=== PATIENT | female | born 1980 | race Caucasian/White ===

== ENCOUNTER 2021-03-18 09:32 | Day surgery (SDC) | payer OTHER ==
[~2021-03-18] VITALS: Ht 154.9 cm; Wt 67.1 kg
[~2021-03-18 09:32] MED LIST: ALPRAZOLAM 0.50.5 M1 PO; ESCITALOPRAM OX20 MG PO; RABEPRAZOLE SOD20 MG PO; SPIRONOLACTONE50 MG PO; ZOLPIDEM TART12.5 MG PO
[2021-03-18 10:16] VITALS: BP 122/81
[2021-03-18 11:05] LABS: CALCIUM 8.8 mg/dL (8.5-10.1); CREATININE 0.9 mg/dL (0.6-1.0); POTASSIUM 4.2 mmol/L (3.5-5.1)
[2021-03-18] MEDS ORDERED: NORCO5 PO (14:05)
[2021-03-18 14:31] VITALS: BP 122/81
--- NOTE | 2021-03-19 14:05 | O ---
[facility] [place] [address] OPERATIVE REPORT Name: CHASITY OLIVEROS Room #: [facility] M.Bri.#: [id number] Admission: 03/18/21 Attend Phys: Karina Castaneda DO Discharge: 03/18/21 Date of : 78 Report #: [id number] THIS REPORT FOR: cc: Jody Christianson MD, Liliana E. MD Fisher,Karina Whiting DO ~ DATE OF SERVICE: 03/18/2021 PREOPERATIVE DIAGNOSIS: Left axillary mass. POSTOPERATIVE DIAGNOSIS: Left axillary mass. PROCEDURE: Excisional biopsy of left axillary mass. SPECIMENS: Left axillary mass. ESTIMATED BLOOD LOSS: 20 mL. COMPLICATIONS: None. INDICATIONS FOR PROCEDURE: The patient is a 40-year-old female with history of retromuscular breast augmentation. Over the course of the last several months, she has noticed an enlarging left axillary mass. There is a more superficial mass as well as a deeper mass that is tender to palpation. The patient was seen and examined. Imaging was performed, which did not demonstrate any abnormal findings. There was a palpable mass on exam. The patient was explained excisional mass of left axillary mass including risks, benefits and alternatives. All questions were answered to the patient's satisfaction. Informed consent was obtained. DESCRIPTION OF PROCEDURE: After the patient was brought back to the operating room and placed in supine position, general anesthesia was induced. SCDs were placed on bilateral extremities and prophylactic antibiotics were administered. Next, after a timeout was performed and the left arm was placed on an arm board, the axilla was prepped and draped in the usual sterile fashion and a timeout was performed. Next, using the patient's previous scar, a 4 cm incision was created over the previous scar. Dissection was carried down through the subcutaneous tissues using Bovie cautery. Next, a Weitlaner retractor was placed. The left axillary mass was marked in the preoperative holding area and I was able to palpate this at the time of the procedure. Dissection was carried down deep through the subcutaneous tissues until a firm nodule was identified. This did appear to be either lipomatous material scar or possibly a chain of lymph nodes. The most palpable firm area was then grasped. Dissection was carried out circumferentially using Bovie cautery and the mass was removed. Upon finger palpation within the wound, there was no further deep component of the mass. The tissue was then palpated more superficially. It did appear that the patient [address] [address] OPERATIVE REPORT Name: MEHRDAD OLIVEROSFER FLEX Room #: DEP [facility] Cipriano#: [id number] Admission: 03/18/21 Attend Phys: Karina Castaneda, Discharge: 03/18/21 Date of : 78 Report #: [id number] had multiple layers of scar within this area. The patient, of note, was given paralytic at the beginning of the procedure, which was allowed to wear off and at one portion, the patient did begin coughing during the procedure and additional sedation was provided without paralytic. During my axillary exploration, no nerves were encountered or large vessels. In the area that was marked of the more superficial lesion, this did appear to be more associated with scar tissue and a small multiloculated lipoma, several firm fatty tissue nodules were removed and placed as specimen. There was not a clear demarcated mass, however, within this more superficial plane. Deep to this plane, there was noted to be additional scar tissue as well as pectoralis muscle. At this time, the wound was then again palpated, no further mass was identified either from within the wound or superficial through the skin. At this time, the wound was copiously irrigated with saline. Hemostasis was achieved using Bovie cautery. Local anesthetic was infiltrated into the subcutaneous tissue and deep dermal layers. The skin was then reapproximated using 3-0 Vicryl in an interrupted fashion and 4-0 Monocryl in a subcuticular manner to close the skin. The area was cleaned. Dermabond was applied for sterile dressing. All sponge and instrument count was reported as correct at the end of the case. The patient tolerated the procedure well without any complications. She was awakened from anesthesia in the operating room and taken to the PACU in stable condition for further recovery. <ELECTRONICALLY SIGNED> By: Karina Castaneda DO 03/19/21 1405 [id number] [id number] Karina Castaneda DO /nt
--- NOTE | 2021-03-24 09:08 | PATH ---
[facility] [address] [place] [address] PATHOLOGY RPT PROCEDURE Name: ANGELICA OLIVEROSNIFER FLEX Room #: DEP [facility] M.R.#: [id number] Admission: 03/18/21 Date of : 78 Discharge: 03/18/21 Report #: [id number] Path Case #: [id number] [facility] Accession Number: [id number] . 01 Material submitted: . lymph node - LEFT AXILLARY MASS. Modifiers: left . 01 Clinical history: . LEFT AXILLARY MASS/NODE . 02 Diagnosis: Lump nodes (3), "left axillary mass", dissection: - Reactive lymph nodes with sinus histiocytosis. - Negative for involvement by metastatic carcinoma or non-Hodgkin lymphoma (please see comment). (IUV:tessa; 03/19/2021) MBR 03/19/2021 [facility] Local . 02 Comment: Examination shows multiple lymph nodes scattered within the adipose tissue with intact germinal centers showing reactive hyperplasia, atypical or markedly enlarged or binucleated lymphocytes are not identified. Multiple properly controlled immunohistochemical stains are performed on block A7 and interpreted as follows: . CD20 - reactive within the B-cells in the aggregate. PAX-5 - reactive within the B-cells in the aggregate. CD3 - reactive within the T-cells admixed in the background. CD5 - reactive within the T-cells in the aggregate (no co-expression within the B-cells identified). CD10 - reactive within the germinal center. BCL-6 - reactive within the germinal center. BCL-2 - germinal center is nonreactive. Cyclin D1 - no diffuse nuclear reactivity identified. CD68 - reactive within the histiocytes. AE1/AE3 - no definitive malignant epithelial cells identified. . Tube Tester H and E slide was co-reviewed by Dr. Jacquelyn Davis who concurs with my diagnosis. Preliminary findings of this case are discussed with Dr. Karina Castaneda in the afternoon of 03/19/2021. . (IUV:strip polisher; 03/19/2021) . 02 Electronically signed: . Ju Smith MD, Pathologist NPI- [id number] . [address] [place] [address] PATHOLOGY RPT PROCEDURE Name: CHASITY OLIVEROS Room #: DEP [facility] M.R.#: [id number] Admission: 03/18/21 Date of : 78 Discharge: 03/18/21 Report #: [id number] Path Case #: [id number] Gross description: . The specimen is received in formalin designated "Chasity Oliveros, left axillary mass" and consists of multiple fatty irregular tissues aggregating 5.1 x 4.1 x 1.2 cm that contains 6 rubbery candidate lymph nodes (ranging from 0.3 x 0.2 x 0.2 cm to 3.9 x 1.0 x 1.0 cm). Tube Tester sections to include the entirety of the candidate lymph nodes are submitted as follows: A1: 2 intact candidate lymph nodes, 1 of which is inked blue, the other is not inked, entirely submitted A2: 1 serially sectioned candidate lymph node, entirely submitted A3: 1 serially sectioned candidate lymph, entirely submitted A4-A5: 1 serially sectioned candidate lymph node, entirely submitted A6-A8: 1 serially sectioned candidate lymph node, entirely submitted ([place]; 03/18/2021) NRI/NRI 03/18/20212049 Local . 02 Pathologist provided ICD-10: R22.32 . 02 CPT . 779575, [id number], [id number] Specimen Comment: A courtesy copy of this report has been sent to [phone] Specimen Comment: [id number] Specimen Comment: Report sent to AND DR LOPEZ Specimen Comment: A duplicate report has been generated due to demographic updates. Performed at: [address], [place] [id number] MD Edenilson Prince MD Phone: [phone] Performed at: [address] [id number] MD Ju Smith MD Phone: [phone]
== END 2021-03-18 15:10 | disposition home or self-care (01) ==
LOC: OR 09:32 → TBA 09:32 → OR 11:16
PROVIDERS: ATTEND Surgery
DX: R59.0 Localized enlarged lymph nodes (principal); F41.9 Anxiety disorder, unspecified; Z98.890 Other specified postprocedural states; Z79.899 Other long term (current) drug therapy; Z87.442 Personal history of urinary calculi; Z20.822 Contact with and (suspected) exposure to COVID-19; Z87.891 Personal history of nicotine dependence; Z87.19 Personal history of other diseases of the digestive system; Z88.8 Allergy status to other drugs, medicaments and biological substances; Z88.2 Allergy status to sulfonamides
CPT/HCPCS: 50010; 50101; 50386; 50403; 54118; 56524; 56526; 62110; 62900; 70005